=== PATIENT | female | born 1995 | race Caucasian/White ===

== ENCOUNTER 2024-02-15 11:19 | Emergency (ER) | payer BC, SELFPAY ==
--- NOTE | 2024-02-15 | ECG_ITS ---
Test Reason : CHEST PAIN Blood Pressure : / mmHG Vent. Rate : 128 BPM Atrial Rate : 128 BPM P-R Int : 130 ms QRS Dur : 086 ms QT Int : 302 ms P-R-T Axes : 077 084 024 degrees QTc Int : 440 ms Sinus tachycardia Biatrial enlargement Abnormal ECG No previous ECGs available Referred By: Generic ED Physician Electronically Signed By:JULIAN DOWNING
[2024-02-15 11:41] VITALS: BP 146/101; PULSE 120; RESP 17; TEMP 36.6; O2SAT 98; BMI 21.6
== END 2024-02-15 15:28 | disposition left against medical advice (07) ==
PROVIDERS: Emergency Provider Emergency Medicine
DX: R07.9 Chest pain, unspecified (principal); R51.9 Headache, unspecified
CPT/HCPCS: 93005; 99281; 99283

== ENCOUNTER → 2024-02-15 11:26 | Outpatient (BNV) | payer BC, SELFPAY | PROVIDERS: Emergency Provider Emergency Medicine; Visit Provider Internal Medicine | DX: R00.0 Tachycardia, unspecified (principal); R07.9 Chest pain, unspecified | CPT/HCPCS: 93010 ==